=== PATIENT | male | born 1965 | race American Indian/Alaskan Native ===

== ENCOUNTER 2020-04-21 03:10 | Emergency (ER) | payer SELFPAY ==
--- NOTE | 2020-04-21 05:29 | XRay Report ---
Left shoulder-3 views Left humerus-2 views Left forearm-2 views Left hand-2 views INDICATION: Acute generalized left upper extremity pain. COMPARISON: None. IMPRESSION: Comminuted fractures of the distal one third of the radius and ulna with mild dorsal dis placement of the distal fracture components and considerable surrounding soft tissue swelling. No oth er fracture identified throughout the entire left upper extremity. 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 Signer Name: éFlix Cuenca MD Signed: 04/21/2020 5:25 AM Workstation Name: [id number]
--- NOTE | 2020-04-21 05:29 | XRay Report ---
Left shoulder-3 views Left humerus-2 views Left forearm-2 views Left hand-2 views INDICATION: Acute generalized left upper extremity pain. COMPARISON: None. IMPRESSION: Comminuted fractures of the distal one third of the radius and ulna with mild dorsal dis placement of the distal fracture components and considerable surrounding soft tissue swelling. No oth er fracture identified throughout the entire left upper extremity. 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 Signer Name: Félix Cuenca MD Signed: 04/21/2020 5:25 AM Workstation Name: [id number]
[2020-04-21] MEDS ORDERED: oxyCODONE /ACETAMINOPHEN 5-325MG TAB PO ONE (05:37)
--- NOTE | 2020-04-21 05:49 | Emergency Department Report ---
ED Upper Extremity Inj HPI - General Chief Complaint: Extremity Injury, Upper Stated Complaint: LEFT ARM PAIN Time Seen by Provider: 04/21/20 05:36 Source: patient Mode of arrival: Ambulatory Limitations: No Limitations - History of Present Illness Initial Comments: Patient is a 54-year-old male presents emergency room with complaints of a left arm injury that occurred just prior to arrival. He reports that he slipped and fell on the platform while trying to grab his bag and states that his arm was caught in the door. He is complaining of pain in his entire left arm but worse in the forearm. He denies ever injuring the past. He denies any numbness or weakness. he denies any other injury. No past medical history. No allergies to medications. - Related Data Previous Rx's Medication Instructions Recorded Last Taken Type HYDROcodone/APAP 5-325 [Westpoint 1 each PO Q6HR PRN #12 tablet 04/21/20 Unknown Rx 5/325] Ibuprofen [Motrin 600 MG tab] 600 mg PO Q8H PRN #20 tablet 04/21/20 Unknown Rx Allergies Allergy/AdvReac Type Severity Reaction Status Date / Time No Known Allergies Allergy Unverified 04/21/20 04:27 ED Review of Systems ROS: Stated complaint: LEFT ARM PAIN Other details as noted in HPI Comment: All other systems reviewed and negative ED Past Medical Hx - Past Medical History Previous Medical History?: No - Surgical History Past Surgical History?: No - Social History Smoking Status: Current Every Day Smoker Substance Use Type: Alcohol - Medications Home Medications: Home Medications Medication Instructions Recorded Confirmed Last Taken Type HYDROcodone/APAP 5-325 [Westpoint 1 each PO Q6HR PRN #12 tablet 04/21/20 Unknown Rx 5/325] Ibuprofen [Motrin 600 MG tab] 600 mg PO Q8H PRN #20 tablet 04/21/20 Unknown Rx ED Physical Exam - General Limitations: No Limitations General appearance: alert, in no apparent distress - Head Head exam: Present: atraumatic, normocephalic - Eye Eye exam: Present: normal appearance - ENT ENT exam: Present: mucous membranes moist - Respiratory Respiratory exam: Absent: respiratory distress, accessory muscle use - Extremities Exam Extremities exam: Present: other (obvious deformity present to the left forearm, skin is intact, ttp of the left forearm, decreased ROM of the forearm secondary to pain, able to move the digits, no elbow, hand, digits, shoulder, or humerus ttp, clavicles are equal, no clavicular ttp, neurovascularly intact) - Neurological Exam Neurological exam: Present: alert, oriented X3, CN II-XII intact, normal gait. Absent: motor sensory deficit - Psychiatric Psychiatric exam: Present: normal affect, normal mood - Skin Skin exam: Present: warm, dry, intact ED Course Vital Signs 04/21/20 04:26 Temperature 97.4 F L Pulse Rate 85 Respiratory 20 Rate Blood Pressure 137/95 O2 Sat by Pulse 97 Oximetry ED Medical Decision Making - Radiology Data Radiology results: report reviewed Left shoulder-3 views Left humerus-2 views Left forearm-2 views Left hand-2 views INDICATION: Acute generalized left upper extremity pain. COMPARISON: None. IMPRESSION: Comminuted fractures of the distal one third of the radius and ulna with mild dorsal displacement of the distal fracture components and considerable surrounding soft tissue swelling. No other fracture identified throughout the entire left upper extremity. There is mild acromioclavicular degenerative arthrosis and mild thumb CMC DJD. Signer Name: Félix Cuenca MD Signed: 04/21/2020 4:25 AM Workstation Name: [id number] - Medical Decision Making Patient is a 54-year-old male presents emergency room with complaints of a left arm injury that occurred just prior to arrival. He reports that he slipped and fell on the platform while trying to grab his bag and states that his arm was caught in the door. He is complaining of pain in his entire left arm but worse in the forearm. He denies ever injuring the past. He denies any numbness or weakness. he denies any other injury. No past medical history. No allergies to medications. VSS. on exam: obvious deformity present to the left forearm, skin is intact, ttp of the left forearm, decreased ROM of the forearm secondary to pain, able to move the digits, no elbow, hand, digits, shoulder, or humerus ttp, clavicles are equal, no clavicular ttp, neurovascularly intact. XR LUE: IMPRESSION: Comminuted fractures of the distal one third of the radius and ulna with mild dorsal displacement of the distal fracture components and considerable surrounding soft tissue swelling. No other fracture identified throughout the entire left upper extremity. There is mild acromioclavicular degenerative arthrosis and mild thumb CMC DJD. discussed case with Dr. Collier, ER attending who reviewed pts XR and advised to place pt in sugar tong splint and give ortho follow up. pt placed in sugar tong and sling by tech and remained neurovascularly intact. Patient's pain treated while in the emergency department and improved. Patient given a disc of his x-rays. Discussed all results with patient and discussed the importance of orthopedic follow-up. Patient given prescription for Westpoint and ibuprofen. Advised patient Please take medication as prescribed as needed. Please follow-up with orthopedic doctor. It is very important that you follow-up. Return to emergency room for new or worsening symptoms. - Differential Diagnosis strain, sprain, fx, dislocation, contusion, tendinitis Critical care attestation.: If time is entered above; I have spent that time in minutes in the direct care of this critically ill patient, excluding procedure time. ED Disposition Clinical Impression: Fracture of radial shaft, with ulna, left, closed Qualifiers: Encounter type: initial encounter Qualified Code(s): S52.202A - Unspecified fracture of shaft of left ulna, initial encounter for closed fracture Disposition: DC-01 TO HOME OR SELFCARE Is pt being admited?: No Does the pt Need Aspirin: No Condition: Stable Instructions: Radial Fracture, Ulnar Fracture Additional Instructions: Please take medication as prescribed as needed. Please follow-up with orthopedic doctor. It is very important that you follow-up. Return to emergency room for new or worsening symptoms. Prescriptions: Ibuprofen [Motrin 600 MG tab] 600 mg PO Q8H PRN #20 tablet PRN Reason: Pain, Moderate (4-6) HYDROcodone/APAP 5-325 [Westpoint 5/325] 1 each PO Q6HR PRN #12 tablet PRN Reason: Pain , Severe (7-10) Referrals: PRIMARY MD ROHAN [Primary Care Provider] - 2-3 Days [facility] [Provider Group] - 2-3 Days DANILELE YOO MD [Staff Physician] - 2-3 Days Time of Disposition: 05:48 Print Language: ARABIC
[2020-04-21 07:35] VITALS: BP 138/76
== END 2020-04-21 07:30 | disposition home or self-care (01) ==
LOC: ED 03:10
DX: S52.202A Unspecified fracture of shaft of left ulna, initial encounter for closed fracture (principal); F17.200 Nicotine dependence, unspecified, uncomplicated; Z79.899 Other long term (current) drug therapy; W18.30XA Fall on same level, unspecified, initial encounter; Y93.89 Activity, other specified; Y92.89 Other specified places as the place of occurrence of the external cause; Y99.8 Other external cause status
CPT/HCPCS: 99283